=== PATIENT | male | born 1935 | race Caucasian/White ===

== ENCOUNTER 2018-06-17 08:47 | Inpatient (IN) ==
[2018-06-17] MEDS ORDERED: CeFAZolin Syr 2,000MG/20 ML 2,000 MG/20 ML SYRINGE IVPB ONE (09:07)
[2018-06-17] MEDS ORDERED: Ringers Solution, Lactated 1,000 ML IVC SCH ×2 (09:15→14:35)
--- NOTE | 2018-06-17 10:17 | History & Physical Report ---
Date of Encounter: 06/17/18 Time of Encounter: 10:13 24 Hour HP Update - Instructions Instructions: If the History and Physical is less than 30 days old and was completed prior to A.M. admission and or procedure and has NOT been updated on calendar day of procedure please complete this update prior to performing procedure. - Update Changes in examination, assessment, or condition: No Changes in Medication: No Preop tests/diagnostics Reviewed: Yes Surgery Remains Indicated: Yes Consent for Planned Operative Procedure(s) Verified: Yes - Pre-Operative Checklist Preoperative Checklist Indicated: No Prophylactic Antibiotic Ordered: Yes Is VTE Prophylaxis Indicated?: Yes
[2018-06-17] MEDS ORDERED: Famotidine 20 MG/2 ML VIAL IVP ONE (10:39)
[2018-06-17] MEDS ORDERED: Ondansetron 4 MG/2 ML VIAL IVP ONE ×2 (10:40→12:47)
[2018-06-17] MEDS ORDERED: *HR* OxyCODONE Immed Rel 5 MG TABLET PO PRN ×3 (10:40→14:35)
[2018-06-17] MEDS ORDERED: *HR* Meperidine 25 MG/ML SYRINGE IVP PRN ×2 (10:40→12:47)
[2018-06-17] MEDS ORDERED: *HR* Promethazine 25 MG/ML VIAL IVP PRN ×2 (10:40→12:47)
[2018-06-17] MEDS ORDERED: Acetaminophen IV 1,000 MG/100 ML INFUS..BTL IVPB ONE (10:40)
--- NOTE | 2018-06-17 10:54 | Anesthesia Evaluation PreOp ---
Date of Encounter: 06/17/18 Time of Encounter: 10:53 - Past History Planned Operation: R-total shoulder reverse Cardiac History: HTN, Hyperlipidemia (currently not medicated) Pulmonary History: Denies Any Significant HX, JAZMINE Dx (denies) VRT MECHANIC History: Other (Luisieres Dz => affects ambulatory stability [walks wobbly and is susceptible to falls]) Other Medical History: Diabetes Type II ("Pre-diabetes"), Thyroid (denies) Anesthesia History: No Prior Anesthetic Complications, Past Anesthesia (Appy, Cataracts, Ear surgery re: Meniere's dz) Alcohol Use: none Drug use: none Medications and Allergies Donepezil [Aricept] 5 mg PO HS 06/17/18 [History] Finasteride [Proscar] 5 mg PO DAILY 06/17/18 [History] Losartan Potassium [Cozaar] 50 mg PO DAILY 06/17/18 [History] OxyCODONE Immed Rel [Roxicodone 5 MG] 5 mg PO Q6HR PRN 5 Days #20 tablet 06/17/18 [Rx] amLODIPine [Norvasc] 5 mg PO DAILY 06/17/18 [History] hydroCHLOROthiazide [Hydrochlorothiazide] 25 mg PO DAILY 06/17/18 [History] Allergy/AdvReac Type Severity Reaction Status Date / Time atorvastatin [From Lipitor] AdvReac Cramping Unverified 06/17/18 09:20 of the Muscles ibuprofen AdvReac Dizziness Unverified 06/17/18 09:20 - Meds/Allergy Pre-op Review Medications Reviewed: Yes Allergies Reviewed: Yes Beta Blockers on Current Med List: No Anesthesia Results - Labs Laboratory Tests 06/14/18 06/14/18 06/14/18 15:23 15:23 15:23 WBC 8.5 Hgb 13.6 Hct 39.2 Plt Count 233 PT 11.5 INR 1.0 APTT 29.2 Sodium 134 L Potassium 3.6 Chloride 99 Carbon Dioxide 25 BUN 30 H Creatinine 1.19 Est GFR (Non-Af Amer) 58 L Est Mean Plasma Glucose Hemoglobin A1c 06/14/18 15:23 WBC Hgb Hct Plt Count PT INR APTT Sodium Potassium Chloride Carbon Dioxide BUN Creatinine Est GFR (Non-Af Amer) Est Mean Plasma Glucose 140 Hemoglobin A1c 6.5 H - Imaging EKG: image reviewed (67bpm - SINUS RHYTHM Electronically Signed On 06-16-2018 6:43:05 EDT by Tawanda Askew) Anesthesia Exam O2 Sat Height 1.73 m Height 1.73 m Weight 6.322 kg Weight 6.322 kg O2 Sat by Pulse Oximetry 94 Vital Signs Temp Pulse Resp BP Pulse Ox 97.7 F 68 16 162/73 94 06/17/18 09:16 06/17/18 09:16 06/17/18 09:16 06/17/18 09:16 06/17/18 09:16 Height: 5'8" Weight: 101kG BMI = 31 NPO (# of Hours): MNoc - HEENT Pupil (Motor): Pupils equal, EOMI Mallampati: II Teeth: Missing, Poor dentition (multiple broken/cracked teeth surfaces) Oral Opening: Greater than 3 - VRT MECHANIC LOC: Oriented VRT MECHANIC Motor: Normal RUE, Normal LUE, Normal RLE, Normal LLE, Normal Face VRT MECHANIC Sensory: Normal: RUE, LUE, RLE, LLE, Face - Cardiac Rhythm: Regular Murmur: None - Pulmonary Breath Sounds: bilateral Clear Respiratory Effort: Symmetrical Anesthesia Assess/Plan ASA Score: 3 (HTN, DM, Obesity,) Modified Purdin Scale for Level of Consciousness: Cooperative, oriented, and tranquil Anesthetic Plan: General, Regional Monitoring Plan: Standard Monitors Recovery Plan: PACU Anes Supervising Prov Stmt: Pt seen/evaluated, R&B discussed, questions answered and consent obtained. Royal Diallo MD
[2018-06-17] MEDS ORDERED: Bupivacaine/Clonidine Syringe 1 EACH SYRINGE ONE (11:32)
[2018-06-17] MEDS ORDERED: ROPIVACAINE HCL/PF 0.5% 30 ML VIAL ONE (11:32)
[2018-06-17] MEDS ORDERED: Tetracaine/PF 20 MG/2 ML AMPUL ONE (11:36)
[2018-06-17] MEDS ORDERED: Ethanol\\Acetic Acid\\Na Ace\\Ben 1,000 ML IRRIG.SOLN IR ONE (11:39)
[2018-06-17] MEDS ORDERED: *HR* Propofol 200 MG/20 ML VIAL IVP ONE (11:47)
[2018-06-17] MEDS ORDERED: Ondansetron 4 MG/2 ML VIAL ONE (11:48)
[2018-06-17] MEDS ORDERED: Dexamethasone 4 MG/ML VIAL ONE (11:48)
[2018-06-17] MEDS ORDERED: Lidocaine -MPF 2% 2 ML VIAL ONE (11:48)
[2018-06-17] MEDS ORDERED: *HR* Succinylcholine 200 MG/10 ML VIAL IVP ONE (11:48)
[2018-06-17] MEDS ORDERED: *HR* Rocuronium Bromide 50 MG/5 ML VIAL ONE (11:48)
--- NOTE | 2018-06-17 11:56 | Anesthesia Procedures ---
Date of Encounter: 06/17/18 Time of Encounter: 11:55 Procedures: Anesthesia - Nerve Block Procedure Date: 06/17/18 Time: 11:55 Surgical Procedure: Right TSR Checklist: Correct Patient Identifier, Correct procedure, History checked Correct side: Right Blood Thinner: No Monitor Applied: EKG, BP, Pulse Oximetry Supplemental Oxygen via Nasal Cannula (L/min): 2 Sedation: Versed (mg): 2 Sedation: Fentanyl (mcg): 50 Indication: Post Op Analgesia (per dr. bledsoe) Pre-op Neuro Deficits: No Block Type: Supraclavicular, Other (scp) Catheter placed: No Sterile Technique: Yes Ultrasound used: Yes Anatomy identified: Yes Visual spread of Local: Yes Neuro Stimulation: No Blood on Needle Aspiration: No Smooth Injection of Local: Yes Pain with Injection of Local: No Prep: Chlorhexadine Needle: 22 x 50 mm Stimuplex Local: 0.25% Bupivicaine w/Clonidine 20 mcg/cc (10cc for scp), Tetracaine, Ropivacaine (30cc 0.5% with 8mg decadron and 20mg tetracaine for Supraclav) Volume (cc): 30, 10 Number of Attempts: 1 Complications: None/effective block Vitals: Vital Signs/O2 Sat/Glucose, Most Recent Temp Pulse Resp BP Pulse Ox 97.7 F 58 18 146/86 97 06/17/18 11:07 06/17/18 11:50 06/17/18 11:50 06/17/18 11:50 06/17/18 11:50 Comments: [facility]
--- NOTE | 2018-06-17 12:15 | Discharge Summary ---
Orders not resulted at time of discharge: Pending orders 06/17/18 00:01 XR shoulder complete RT [XR] Routine H/H [Hemoglobin and Hematocrit] [HEME] Routine 06/17/18 10:39 US anesthesia pain block [US] Routine Date of Encounter: 06/18/18 Time of Encounter: 08:02 - Discharge Diagnosis (1) Hypertension Priority: Secondary Status: Chronic Qualifiers: Hypertension type: unspecified Qualified Code(s): I10 - Essential (primary) hypertension (2) Hyperlipidemia Priority: Secondary Status: Chronic Qualifiers: Hyperlipidemia type: unspecified Qualified Code(s): E78.5 - Hyperlipidemia, unspecified (3) Type 2 diabetes mellitus Priority: Secondary Status: Chronic Qualifiers: Diabetes mellitus residential insulin use: with residential use Diabetes mellitus complication status: without complication Qualified Code(s): E11.9 - Type 2 diabetes mellitus without complications; Z79.4 - intermediate card tender (current) use of insulin (4) Thyroid disease Priority: Secondary Status: Chronic (5) Rotator cuff tear arthropathy of right shoulder Priority: Primary Status: Chronic (6) Status post reverse total replacement of right shoulder Priority: Primary Status: Acute (7) Obesity (BMI 30.0-34.9) Priority: Secondary Status: Chronic - Hospital Course Hospital course: Mr. Schumacher is a 83 year old male The patient had an uneventful postoperative course. They received antibiotics and physical therapy and were discharged in stable condition. There will follow-up in the office in 2 weeks. - Time Spent with Patient Total time spent providing and/or coordinating discharge services: - Discharge Medications Home Medications: Donepezil [Aricept] 5 mg PO HS 06/17/18 [History] Finasteride [Proscar] 5 mg PO DAILY 06/17/18 [History] Losartan Potassium [Cozaar] 50 mg PO DAILY 06/17/18 [History] OxyCODONE Immed Rel [Roxicodone 5 MG] 5 mg PO Q6HR PRN 5 Days #20 tablet 06/17/18 [Rx] amLODIPine [Norvasc] 5 mg PO DAILY 06/17/18 [History] hydroCHLOROthiazide [Hydrochlorothiazide] 25 mg PO DAILY 06/17/18 [History] Allergies/Adverse Reactions: Allergy/AdvReac Type Severity Reaction Status Date / Time atorvastatin [From Lipitor] AdvReac Cramping Verified 06/18/18 05:39 of the Muscles ibuprofen AdvReac Dizziness Verified 06/18/18 05:39 Primary care physician: Carlee Garcia MD - Patient Status Disposition: Home, Self-Care Condition: Good Functional capacity at discharge: independent ambulation Overall status at discharge: patient is progressing back to baseline - Discharge Instructions Follow Up With: Carlee Garcia MD [Primary Care Provider] -
[2018-06-17] MEDS ORDERED: EPHEDrine 50 MG/ML VIAL ONE (12:43)
--- NOTE | 2018-06-17 13:25 | Orthopedic Operative Note ---
Date of procedure: 06/17/18 Pre-op diagnosis: Right shoulder cuff tear arthropathy Post-op diagnosis: same Procedure: Procedure: Total Shoulder Replacment Reverse, right Estimated blood loss: 50 cc Hardware: Metal and polyethylene replacement: Arthrex 28+2, 35 mm screw glenoid baseplate, 2 4.5 screws. 2 5.5 screw, 42+4 glenosphere, 14 apex humeral stem, poly insert 3 Exam Under anesthesia: Full motion no instability patient noted to have grade 4 arthritic changes humeral head. Procedural Notes: Irreparable rotator cuff tear Operative procedure: The patient was brought to the operating room and placed on the operating room table. After general anesthesia was administered the operative shoulder was examined. Findings were noted. The patient was placed in the modified beachchair position. All pressure points were padded appropriately. And the head was stabilized in the neutral position. The operative extremity was prepped and draped in the sterile surgical fashion. The patient received IV antibiotics prior to skin incision. A standard deltopectoral approach was made to the operative shoulder. Incision was made to the skin and subcutaneous tissue,hemo stasis was obtained with Bovie cautery. Using careful blunt dissection the cephalic vein was identified and mobilized medially. The deltopectoral interval was developed and the clavipectoral fascia was incised. The subscap was released off the lesser tuberosity and tagged with #2 FiberWire suture subscap was irreparable. The humerus was dislocated patient noted to have irreparable tear supraspinatus tendon, and the humeral cut was made along the anatomic neck. Patient noted to have grade 4 arthritic changes humeral head. Anterior and posterior Bankart retractors were placed to expose the glenoid. The glenoid guide was seated and the centering hole was made. It was reamed with the appropriate reamer. The 28, +2, 30 mm from was seated and secured with (2) 4.5 screws and 2 5.5 screw. The baseplate was irrigated and dried and the 42+4 Glenosphere was seated and secured with the Marie taper. The Marie taper was tested and found to be secure the humerus was redislocated and prepared with the diaphyseal reamers, followed by a broaching process up to the appropriate size 14 apex in the patient's anatomic version. The metaphyseal reamer was then utilized. Trial reduction found the shoulder to be relocatable. Trial components were removed and 14 apex stem was impacted in place in the patient's anatomic version. Trial reduction found the shoulder to be relocatable and stable with the appropriate 3 Kiarra Trial component was removed and the real implant was seated and secured the shoulder was reduced. The shoulder had excellent motion and excellent stability and no evidence of dislocation. The deep tissue was irrigated with pulse irrigation. The deltopectoral interval was closed with a running #1 PDS suture, subcutaneous tissue was irrigated and closed with 0 PDS suture, the skin was closed with Dermabond. The patient was placed in a sterile dressing, abduction brace and extubated. The patient was then transferred to the recovery room in stable condition. Anesthesia: MINDY Surgeon: Te Suarez Was there an fiscal assistant present: No Estimated blood loss (cc): 50 Condition: stable Disposition: PACU
[2018-06-17 14:24] LABS: Hematocrit 39.8 % (37.5-50.1)
[2018-06-17] MEDS ORDERED: Sennosides 8.6 MG TABLET PO PRN (14:35)
[2018-06-17] MEDS ORDERED: Naloxone 0.4 MG/ML INJ IVP PRN (14:35)
[2018-06-17] MEDS ORDERED: Ondansetron 4 MG/2 ML VIAL IVP PRN (14:35)
[2018-06-17] MEDS ORDERED: MOM Conc 10 ML UD.LIQ PO PRN (14:35)
[2018-06-17] MEDS ORDERED: traMADol 50 MG TABLET PO PRN (14:35)
[2018-06-17] MEDS ORDERED: Temazepam 15 MG CAPSULE PO PRN (14:35)
[2018-06-17] MEDS ORDERED: *HR* OxyCODONE/APAP 5/325 TABLET PO PRN (14:35)
--- NOTE | 2018-06-17 14:40 | Anesthesia Evaluation Post Op ---
Date of Encounter: 06/17/18 Time of Encounter: 14:15 - Vital Signs Vital Signs: Vital Signs/O2 Sat/Glucose, Most Current Temp Pulse Resp BP Pulse Ox 06/17/18 14:10 98.1 F 75 16 146/77 94 06/17/18 14:00 98.1 F 82 16 151/76 93 06/17/18 13:50 97.8 F 77 18 158/78 95 06/17/18 13:40 97.1 F L 75 18 160/86 95 06/17/18 13:30 96.9 F L 74 14 142/76 92 06/17/18 12:15 64 18 124/69 96 06/17/18 12:00 62 18 122/67 97 06/17/18 11:55 56 18 116/61 96 06/17/18 11:50 58 18 146/86 97 06/17/18 11:45 64 18 151/75 97 06/17/18 11:07 97.7 F 68 16 162/73 94 - Lungs Lungs: Clear Ascult./Percussion - Airway Airway: Non-obstructed - Cardiovascular Regular Rate, Baseline Rhythm - Mental Status Mental Status: Alert & Oriented, Answers Appropriately - Pain Pain Scale: 2 Pain Scale used: Numeric (1 - 10) - Nausea Vomiting Nausea Vomiting: Not Present - Hydration Hydration: Tolerates oral liquids - Discharge PostOp Status: Transfer Patient to floor Anes Supervising Prov Stmt: Pt seen/evaluated, VSS and has met criteria for discharge to floor. - MD Yoel
[2018-06-17] MEDS: *HR* Enoxaparin 30 MG/0.3 ML SYRINGE SQ SCH (17:19)
[2018-06-17] MEDS ORDERED: *HR* Enoxaparin 30 MG/0.3 ML SYRINGE SQ SCH (18:00)
[2018-06-18] MEDS: *HR* Enoxaparin 30 MG/0.3 ML SYRINGE SQ SCH (05:40)
--- NOTE | 2018-06-18 08:03 | Orthopedics Progress Note ---
Date of Encounter: 06/18/18 Time of Encounter: 08:03 - Assessment and Plan (1) Hypertension Current Visit: Yes Status: Chronic Qualifiers: Hypertension type: unspecified Qualified Code(s): I10 - Essential (primary) hypertension (2) Hyperlipidemia Current Visit: Yes Status: Chronic Qualifiers: Hyperlipidemia type: unspecified Qualified Code(s): E78.5 - Hyperlipidemia, unspecified (3) Type 2 diabetes mellitus Current Visit: Yes Status: Chronic Qualifiers: Diabetes mellitus [facility] insulin use: with [facility] use Diabetes mellitus complication status: without complication Qualified Code(s): E11.9 - Type 2 diabetes mellitus without complications; Z79.4 - terminal makeup operator (current) use of insulin (4) Thyroid disease Current Visit: Yes Status: Chronic (5) Rotator cuff tear arthropathy of right shoulder Current Visit: Yes Status: Chronic (6) Status post reverse total replacement of right shoulder Current Visit: Yes Status: Acute (7) Obesity (BMI 30.0-34.9) Current Visit: Yes Status: Chronic Subjective Interval history: Patient was seen this morning doing well without complaints. Afebrile vital signs stable. Operative extremity: Neurovascularly intact Dressing clean dry and intact Calves nontender Assessment and plan: Continue with postoperative care Discharged today Objective Vital signs: Vital Signs Temp Pulse Resp BP Pulse Ox 06/18/18 07:05 97.6 F 72 16 156/72 97 06/18/18 03:47 98.1 F 71 16 136/61 93 06/17/18 23:07 98.5 F 94 18 140/61 93 06/17/18 18:59 97.5 F L 94 16 130/70 93 06/17/18 17:38 97.7 F 80 16 141/76 94 06/17/18 16:49 97.7 F 81 18 139/72 06/17/18 15:40 97.6 F 86 16 142/69 93 06/17/18 15:15 97.5 F L 82 16 145/71 98 06/17/18 14:44 97.5 F L 78 16 140/70 96 06/17/18 14:10 98.1 F 75 16 146/77 94 06/17/18 14:00 98.1 F 82 16 151/76 93 06/17/18 13:50 97.8 F 77 18 158/78 95 06/17/18 13:40 97.1 F L 75 18 160/86 95 06/17/18 13:30 96.9 F L 74 14 142/76 92 06/17/18 12:15 64 18 124/69 96 06/17/18 12:00 62 18 122/67 97 06/17/18 11:55 56 18 116/61 96 06/17/18 11:50 58 18 146/86 97 06/17/18 11:45 64 18 151/75 97 06/17/18 11:07 97.7 F 68 16 162/73 94 06/17/18 09:16 97.7 F 68 16 162/73 94 Intake and Output 06/17/18 06/18/18 06/18/18 23:59 07:59 15:59 Intake Total 100 / 100 Output Total 200 / 200 Balance -100 / -100 Intake: IV Fluids 100 / 100 Ancef 2,000 MG In 0.9 % Sodium 100 / 100 Chloride 100 ML @ 200 mls/hr IVPB Q8HR BLADE Rx#:[id number] Oral 0 / 0 Output: Urine 200 / 200 Other: # Voids 1 1 Weight 101.76 kg Patient Weight 06/18/18 23:59 Weight 101.76 kg - Labs CBC & BMP: 06/17/18 14:01 Labs: Abnormal lab results POC Glucose 181 mg/dL (70-99) H 06/17/18 09:19 Consult Discharge Plan - Plan Referrals: Carlee Garcia MD [Primary Care Provider] -
[2018-06-18 08:10] LABS: Hematocrit 39.5 % (37.5-50.1); Hemoglobin 13.7 g/dL (12.9-16.9)
[2018-06-18] MEDS ORDERED: amLODIPine 5 MG TABLET PO SCH (09:00)
[2018-06-18] MEDS ORDERED: Patient Taking Own Medication 1 EACH PO SCH (09:00)
[2018-06-18] MEDS ORDERED: Finasteride 5 MG TABLET PO SCH (09:00)
[2018-06-18] MEDS ORDERED: hydroCHLOROthiazide 25 MG TABLET PO SCH (09:00)
[2018-06-18 11:56] VITALS: BP 120/70
--- NOTE | 2018-06-19 13:46 | Physician Discharge Referral ---
Home Health/Hosp Referral Info Transfer to: Home Health Provider in Charge Post Discharge: PCP - Diagnosis (1) Status post reverse total replacement of right shoulder Priority: Primary Status: Acute (2) Hyperlipidemia Status: Chronic (3) Hypertension Status: Chronic (4) Obesity (BMI 30.0-34.9) Status: Chronic (5) Rotator cuff tear arthropathy of right shoulder Status: Chronic (6) Thyroid disease Status: Chronic (7) Type 2 diabetes mellitus Status: Chronic - Respiratory Orders None Smoking Cessation: Smoking cessation has been advised. For more information, call the [place] Tobacco Quit Line at 0-657-BUZT-NOW. - Diet/Nutrition Diet/Nutrition Orders: Regular - Activity Activity Orders: Up ad analisa, Ambulate - Services Needed Following services are medically necessary services: Nursing, Home Health Aide, Physical Therapy, Occupational Therapy Home Care Orders: Opsite dressing, leave intact until first post-operative visit. Zipline in place, plan to remove at post-operative day #14-16. If dressing becomes >50% saturated, contact office, remove dressing and place appropriate dressing in its place. Do not allow for dressing to get wet. Shoulder Precautions x 6 weeks. Apply cold therapy wrap 3-6x/day for 20 minutes at a time. Encourage ambulation throughout the day. Use Incentive spirometer 10x/hour. Elevate affected extremity above heart as tolerated. NWB to affected upper extremity x 6 weeks. Will remove brace at first post-operative appointment. OK to remove during PT/OT and Home exercises. - Transfer Medications Home Medications: Donepezil [Aricept] 5 mg PO HS 06/17/18 [History] Finasteride [Proscar] 5 mg PO DAILY 06/17/18 [History] Losartan Potassium [Cozaar] 50 mg PO DAILY 06/17/18 [History] OxyCODONE Immed Rel [Roxicodone 5 MG] 5 mg PO Q6HR PRN 5 Days #20 tablet 06/17/18 [Rx] amLODIPine [Norvasc] 5 mg PO DAILY 06/17/18 [History] hydroCHLOROthiazide [Hydrochlorothiazide] 25 mg PO DAILY 06/17/18 [History] Allergies/Adverse Reactions: Allergy/AdvReac Type Severity Reaction Status Date / Time atorvastatin [From Lipitor] AdvReac Cramping Verified 06/18/18 05:39 of the Muscles ibuprofen AdvReac Dizziness Verified 06/18/18 05:39 Certification: Further, I certify that my clinical findings support that this patient is homebound (i.e. absences from home require considerable and taxing effort and are for medical reasons or gnosticist services or infrequently or short duration when for other reasons) because: Homebound Reason: Post-surgery restriction and or conditions limit ability to leave home Attestation: My signature below is to certify that this patient is under my care and that I, or nurse practitioner, or a physician's anesthesiologist assistant certified working with me, has a [id number] encounter with this patient.
== END 2018-06-18 12:45 | disposition home or self-care (01) | DRG 483 ==
LOC: SAMDAY 08:47 → 3NENU 14:31
PROVIDERS: ADMIT Orthopaedic Surgery; ATTEND Orthopaedic Surgery